=== PATIENT | female | born 1995 | race Caucasian/White ===

== ENCOUNTER 2019-06-17 13:16 | Observation (INO) | payer BC ==
[2019-06-17] MEDS ORDERED: Sodium Chloride 0.9% 1,000 ML IV ONE (13:23)
--- NOTE | 2019-06-17 14:37 | US ---
INDICATION: Right upper quadrant pain TECHNIQUE: Ultrasound abdomen limited. Sonographic images of the right upper quadrant were obtained using interiano-scale and color Doppler images. COMPARISON: None FINDINGS: Liver: Normal in size and echotexture. No masses. No intrahepatic biliary dilatation. Gallbladder: No stones or sludge. Normal wall thickness. No pericholecystic fluid. Common bile duct: Not well visualized. Pancreas: Unremarkable. Right kidney: 12.4 cm. Normal echotexture and cortex. No masses, stones, or hydronephrosis. Vasculature: Proximal abdominal aorta are normal in appearance. IMPRESSION: Unremarkable right upper quadrant ultrasound. The common bile duct is not visualized. Dictated by Tho Butler MD @ 06/17/2019 2:35:23 PM Dictated by: Tho Butler MD @ 06/17/2019 14:35:28 (Electronically Signed)
--- NOTE | 2019-06-17 14:59 | EDM.PDOC ---
<Hector Sandoval J - Last Filed: 06/17/19 14:57> ED HPI GENERAL MEDICAL PROBLEM - General Chief Complaint: Abdominal Pain Stated Complaint: SEVERE STOMACH PAIN Time Seen by Provider: 06/17/19 13:33 - History of Present Illness INITIAL COMMENTS - FREE TEXT/NARRATIVE: HISTORY AND PHYSICAL: History of present illness: Patient's 24-year-old white female presents with concern of abdominal pain this is right-sided mourn her right middle and upper quadrant she was seen at another institution recently and states she was told she had some gallbladder inflammation this was via ultrasound and routine lab work she left prior to completion of her evaluation and treatment and presents now. She had nausea no vomiting no fever chills she denies trauma or urinary symptoms. Review of systems: As per history of present illness and below otherwise all systems reviewed and negative. Past medical history: As per history of present illness and as reviewed below otherwise noncontributory. Surgical history: As per history of present illness and as reviewed below otherwise noncontributory. Social history: No reported history of drug or alcohol abuse. Family history: As per history of present illness and as reviewed below otherwise noncontributory. Physical exam: HEENT: Atraumatic, normocephalic, pupils reactive, negative for conjunctival pallor or scleral icterus, mucous membranes moist, throat clear, neck supple, nontender, trachea midline. Lungs: Clear to auscultation, breath sounds equal bilaterally, chest nontender. Heart: S1S2, regular, negative for clicks, rubs, or JVD. Abdomen: Soft, nondistended, right-sided tenderness this is not well localized is no rebound or guarding. Negative for masses or hepatosplenomegaly. Negative for costovertebral tenderness. Pelvis: Stable nontender. Genitourinary: Deferred. Rectal: Deferred. Extremities: Atraumatic, negative for cords or calf pain. Neurovascular unremarkable. Neuro: Awake, alert, oriented. Cranial nerves II through XII unremarkable. Cerebellum unremarkable. Motor and sensory unremarkable throughout. Exam nonfocal. Diagnostics: CBC CMP UA lipase ultrasound CT abdomen and pelvis Therapeutics: Saline 1 L bottle Impression: #1 right-sided abdominal pain Definitive disposition and diagnosis as appropriate pending reevaluation and review of above. 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 ED EXAM, GENERAL - Physical Exam Exam: See Below (See dictation) Course - Vital Signs Last Recorded V/S: Last Vital Signs Temp 96.5 F 06/17/19 13:57 Pulse 109 H 06/17/19 13:57 Resp 18 06/17/19 13:57 BP 143/93 H 06/17/19 13:57 Pulse Ox 97 06/17/19 13:57 - Orders/Labs/Meds Orders: Active Orders 24 hr Category Date Time Status Admission Status [Patient Status] [ADT] Stat ADT 06/17/19 16:26 Ordered Labs: Laboratory Tests 06/17/19 06/17/19 06/17/19 Range/Units 14:00 14:00 14:20 WBC 17.40 H (4.0-11.0) K/uL RBC 5.09 (4.30-5.90) M/uL Hgb 15.1 (12.0-16.0) g/dL Hct 45.4 (36.0-46.0) % MCV 89.2 (80.0-98.0) fL MCH 29.7 (27.0-32.0) pg MCHC 33.3 (31.0-37.0) g/dL RDW Std Deviation 44.0 (28.0-62.0) fl RDW Coeff of Wei 13 (11.0-15.0) % Plt Count 321 (150-400) K/uL MPV 10.20 (7.40-12.00) fL Neut % (Auto) 79.9 (48.0-80.0) % Lymph % (Auto) 14.8 L (16.0-40.0) % [place] % (Auto) 4.8 (0.0-15.0) % Eos % (Auto) 0.3 (0.0-7.0) % Baso % (Auto) 0.2 (0.0-1.5) % Neut # (Auto) 13.9 H (1.4-5.7) K/uL Lymph # (Auto) 2.6 H (0.6-2.4) K/uL [place] # (Auto) 0.8 (0.0-0.8) K/uL Eos # (Auto) 0.1 (0.0-0.7) K/uL Baso # (Auto) 0.0 (0.0-0.1) K/uL Nucleated RBC % 0.0 /100WBC Nucleated RBCs # 0 K/uL Sodium (136-145) mmol/L Potassium (3.5-5.1) mmol/L Chloride (98-107) mmol/L Carbon Dioxide (21.0-32.0) mmol/L BUN (7.0-18.0) mg/dL Creatinine (0.6-1.0) mg/dL Est Cr Clr Drug Dosing mL/min Estimated GFR (MDRD) ml/min Glucose (74-106) mg/dL Calcium (8.5-10.1) mg/dL Total Bilirubin (0.2-1.0) mg/dL AST (15-37) IU/L ALT (14-63) IU/L Alkaline Phosphatase (46-116) U/L Total Protein (6.4-8.2) g/dL Albumin (3.4-5.0) g/dL Globulin (2.6-4.0) g/dL Albumin/Globulin Ratio (0.9-1.6) Lipase (73-393) U/L Urine Color YELLOW Urine Appearance CLEAR Urine pH 6.0 (5.0-8.0) Ur Specific [place] 1.020 (1.001-1.035) Urine Protein NEGATIVE (NEGATIVE) mg/dL Urine Glucose (UA) NEGATIVE (NEGATIVE) mg/dL Urine Ketones NEGATIVE (NEGATIVE) mg/dL Urine Occult Blood NEGATIVE (NEGATIVE) Urine Nitrite NEGATIVE (NEGATIVE) Urine Bilirubin NEGATIVE (NEGATIVE) Urine Urobilinogen 0.2 (<2.0) EU/dL Ur Leukocyte Esterase NEGATIVE (NEGATIVE) Urine HCG, Qual NEGATIVE (NEGATIVE) 06/17/19 Range/Units 14:20 WBC (4.0-11.0) K/uL RBC (4.30-5.90) M/uL Hgb (12.0-16.0) g/dL Hct (36.0-46.0) % MCV (80.0-98.0) fL MCH (27.0-32.0) pg MCHC (31.0-37.0) g/dL RDW Std Deviation (28.0-62.0) fl RDW Coeff of Wei (11.0-15.0) % Plt Count (150-400) K/uL MPV (7.40-12.00) fL Neut % (Auto) (48.0-80.0) % Lymph % (Auto) (16.0-40.0) % [place] % (Auto) (0.0-15.0) % Eos % (Auto) (0.0-7.0) % Baso % (Auto) (0.0-1.5) % Neut # (Auto) (1.4-5.7) K/uL Lymph # (Auto) (0.6-2.4) K/uL [place] # (Auto) (0.0-0.8) K/uL Eos # (Auto) (0.0-0.7) K/uL Baso # (Auto) (0.0-0.1) K/uL Nucleated RBC % /100WBC Nucleated RBCs # K/uL Sodium 139 (136-145) mmol/L Potassium 3.9 (3.5-5.1) mmol/L Chloride 105 (98-107) mmol/L Carbon Dioxide 24.5 (21.0-32.0) mmol/L BUN 14 (7.0-18.0) mg/dL Creatinine 0.8 (0.6-1.0) mg/dL Est Cr Clr Drug Dosing 102.39 mL/min Estimated GFR (MDRD) > 60.0 ml/min Glucose 156 H (74-106) mg/dL Calcium 9.2 (8.5-10.1) mg/dL Total Bilirubin 0.4 (0.2-1.0) mg/dL AST 12 L (15-37) IU/L ALT 17 (14-63) IU/L Alkaline Phosphatase 69 (46-116) U/L Total Protein 7.4 (6.4-8.2) g/dL Albumin 3.8 (3.4-5.0) g/dL Globulin 3.6 (2.6-4.0) g/dL Albumin/Globulin Ratio 1.1 (0.9-1.6) Lipase 68 L (73-393) U/L Urine Color Urine Appearance Urine pH (5.0-8.0) Ur Specific [place] (1.001-1.035) Urine Protein (NEGATIVE) mg/dL Urine Glucose (UA) (NEGATIVE) mg/dL Urine Ketones (NEGATIVE) mg/dL Urine Occult Blood (NEGATIVE) Urine Nitrite (NEGATIVE) Urine Bilirubin (NEGATIVE) Urine Urobilinogen (<2.0) EU/dL Ur Leukocyte Esterase (NEGATIVE) Urine HCG, Qual (NEGATIVE) Meds: Medications Discontinued Medications Generic Name Dose Route Start Last Admin Trade Name Freq PRN Reason Stop Dose Admin Sodium Chloride 1,000 mls @ 999 mls/hr 06/17/19 13:23 06/17/19 14:23 Normal Saline IV 06/17/19 14:23 999 mls/hr STAT ONE Administration Departure - Departure Disposition: Still A Patient 30 Clinical Impression: Appendicitis Qualifiers: Appendicitis type: acute appendicitis Acute appendicitis type: unspecified acute appendicitis type Qualified Code(s): K35.80 - Unspecified acute appendicitis - Discharge Information Referrals: Corinne Matthews NP [Primary Care Provider] - Forms: ED Department Discharge - My Orders Last 24 Hours: My Active Orders 06/17/19 16:26 Admission Status [Patient Status] [ADT] Stat - Assessment/Plan Last 24 Hours: My Active Orders 06/17/19 16:26 Admission Status [Patient Status] [ADT] Stat <Regla Hensley E - Last Filed: 06/17/19 16:27> Departure - Departure Time of Disposition: 16:27
[2019-06-17 16:02] LABS: CHLORIDE,CL 105 mmol/L (98-107); SODIUM,NA 139 mmol/L (136-145)
--- NOTE | 2019-06-17 16:16 | CT ---
INDICATION: Right sided abdominal pain for 6 days TECHNIQUE: CT Abdomen and pelvis without i.v. contrast. Coronal and sagittal reformats were obtained. COMPARISON: None FINDINGS: Lower chest: Unremarkable. Liver: Unremarkable. Spleen: Unremarkable. Pancreas: Unremarkable. Gallbladder: There is an 8 mm gallstone in the gallbladder neck with no inflammatory changes seen. Kidney: Unremarkable. No kidney or ureteral stones or obstruction seen. Adrenal: Unremarkable. Bowel: The appendix is distended measuring 12 mm with surrounding ascites and moderate inflammatory changes. It is directed cephalad with its tip along the inferior margin of the liver. Vascular: Unremarkable. Lymph: Several ileocolic lymph nodes are measured measuring up to 1 cm. These are likely reactive in nature. Peritoneum: Unremarkable. No pneumoperitoneum is seen. Small amount of pelvic ascites is noted. Pelvis: Unremarkable. Soft tissue: Unremarkable. Bone: Limbus deformity is seen on the superior endplate of L3. IMPRESSION: 1. The appendix is distended measuring 12 mm with surrounding ascites and moderate inflammatory changes. It is directed cephalad with its tip along the inferior margin of the liver. Findings are consistent with acute appendicitis. Dictated by Renato Gracia MD @ 06/17/2019 4:14:46 PM Please note that all CT scans at this facility use dose modulation, iterative reconstruction, and/or weight-based dosing when appropriate to reduce radiation dose to as low as reasonably achievable. Dictated by: Renato Gracia MD @ 06/17/2019 16:14:53 (Electronically Signed)
[2019-06-17] MEDS ORDERED: cefOXitin 2 GM in Premix Bag 1 BAG IV ONE (16:54)
--- NOTE | 2019-06-17 17:08 | PCM.CONS ---
H&P History of Present Illness - General Date of Service: 06/17/19 Admit Problem/Dx: Admission Diagnosis/Problem Admission Diagnosis/Problem Appendicitis Source of Information: Patient History Limitations: Reports: No Limitations - History of Present Illness Initial Comments - Free Text/Narative: Patient is a 24-year-old female who presents to the emergency room here in [place] with complaints of abdominal pain since this past Thursday. This is associated with nausea and vomiting. She has had some mild chills. She was seen in the emergency room in [place] today. Apparently, they did a CT scan or ultrasound, but for whatever reason, she chose to leave there. She then presented to the emergency room here where she has been evaluated. Gallbladder ultrasound did not reveal any acute pathology. She however had an elevated white count at 17,000+ and a CT scan now reveals appendicitis suggesting the appendix is perhaps either retrocecal or at least the tip is in the right upper quadrant. Patient does note pain with ambulation and states that on the ride up if they hit a bump in the road, the pain was more intense. She is a type I diabetic and is on insulin. She has also been on a Keto diet , has lost 32 pounds and has not been taking any fast acting insulin. Symptom Onset Date: 06/12/19 Duration of Symptoms: Reports: Day(s):, Getting Worse Location: Reports: Abdomen Quality: Reports: Ache, Pressure Severity: Moderate Improves with: Reports: Rest Worsens with: Reports: Movement Context: Reports: Sick Contact Associated Symptoms: Reports: Fever/Chills, Loss of Appetite, Nausea/Vomiting. 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 Denies: Night Sweats HEENT: Reports: No Symptoms Pulmonary: Denies: Shortness of Breath, Wheezing, Pleuritic Chest Pain Cardiovascular: Denies: Chest Pain, Palpitations Gastrointestinal: Reports: Abdominal Pain, Anorexia, Decreased Appetite, Flatus , Nausea, Vomiting. Denies: Black Stool, Bloody Stool, Constipation, Diarrhea, Distension, Hematemesis, Hematochezia, Melena Genitourinary: Denies: Dysuria, Frequency, Burning, Pain, Urgency, Abnormal Menses Musculoskeletal: Reports: No Symptoms Skin: Denies: Cyanosis, Jaundice, Mottled, Pallor Psychiatric: Denies: Confusion, Depression, Mood Lability, Anxiety Neurological: Reports: No Symptoms Hematologic/Lymphatic: Reports: No Symptoms Immunologic: Reports: No Symptoms Exam - Exam Exam: See Below - Vital Signs Vital Signs: Last Vital Signs Temp 96.5 F 06/17/19 13:57 Pulse 109 H 06/17/19 13:57 Resp 18 06/17/19 13:57 BP 143/93 H 06/17/19 13:57 Pulse Ox 97 06/17/19 13:57 Weight: 245 lb - Exam Quality Assessment: No: Supplemental Oxygen, Urinary Catheter General: Alert, Oriented, Cooperative, Moderate Distress HEENT: Conjunctiva Clear, EOMI, Pupils Equal, Pupils Reactive. No: Scleral Icterus Neck: Supple, Trachea Midline Lungs: Clear to Auscultation, Normal Respiratory Effort Cardiovascular: Regular Rate, Regular Rhythm. No: Tachycardia GI/Abdominal Exam: Normal Bowel Sounds, Soft, No Distention, Rebound, Tender. No: Guarding, Rigid, Mass (Female) Exam: Deferred Rectal (Female) Exam: Deferred Back Exam: Normal Inspection Extremities: Normal Inspection. No: Pedal Edema, Dain's Sign Peripheral Pulses: 4+: Posterior Tibial (L), Posterior Tibial (R), Dorsalis Pedis (L), Dorsalis Pedis (R) Skin: Warm, Dry, Intact Neurological: Cranial Nerves Intact Neuro Extensive - Mental Status: Alert, Oriented x3, Normal Mood/Affect Psychiatric: Alert, Normal Affect, Normal Mood - Patient Data Lab Results Last 24 hrs: Laboratory Results - last 24 hr 06/17/19 06/17/19 06/17/19 Range/Units 14:00 14:00 14:20 WBC 17.40 H (4.0-11.0) K/uL RBC 5.09 (4.30-5.90) M/uL Hgb 15.1 (12.0-16.0) g/dL Hct 45.4 (36.0-46.0) % MCV 89.2 (80.0-98.0) fL MCH 29.7 (27.0-32.0) pg MCHC 33.3 (31.0-37.0) g/dL RDW Std Deviation 44.0 (28.0-62.0) fl RDW Coeff of Wei 13 (11.0-15.0) % Plt Count 321 (150-400) K/uL MPV 10.20 (7.40-12.00) fL Neut % (Auto) 79.9 (48.0-80.0) % Lymph % (Auto) 14.8 L (16.0-40.0) % [place] % (Auto) 4.8 (0.0-15.0) % Eos % (Auto) 0.3 (0.0-7.0) % Baso % (Auto) 0.2 (0.0-1.5) % Neut # (Auto) 13.9 H (1.4-5.7) K/uL Lymph # (Auto) 2.6 H (0.6-2.4) K/uL [place] # (Auto) 0.8 (0.0-0.8) K/uL Eos # (Auto) 0.1 (0.0-0.7) K/uL Baso # (Auto) 0.0 (0.0-0.1) K/uL Nucleated RBC % 0.0 /100WBC Nucleated RBCs # 0 K/uL Sodium (136-145) mmol/L Potassium (3.5-5.1) mmol/L Chloride (98-107) mmol/L Carbon Dioxide (21.0-32.0) mmol/L BUN (7.0-18.0) mg/dL Creatinine (0.6-1.0) mg/dL Est Cr Clr Drug Dosing mL/min Estimated GFR (MDRD) ml/min Glucose (74-106) mg/dL Calcium (8.5-10.1) mg/dL Total Bilirubin (0.2-1.0) mg/dL AST (15-37) IU/L ALT (14-63) IU/L Alkaline Phosphatase (46-116) U/L Total Protein (6.4-8.2) g/dL Albumin (3.4-5.0) g/dL Globulin (2.6-4.0) g/dL Albumin/Globulin Ratio (0.9-1.6) Lipase (73-393) U/L Urine Color YELLOW Urine Appearance CLEAR Urine pH 6.0 (5.0-8.0) Ur Specific [place] 1.020 (1.001-1.035) Urine Protein NEGATIVE (NEGATIVE) mg/dL Urine Glucose (UA) NEGATIVE (NEGATIVE) mg/dL Urine Ketones NEGATIVE (NEGATIVE) mg/dL Urine Occult Blood NEGATIVE (NEGATIVE) Urine Nitrite NEGATIVE (NEGATIVE) Urine Bilirubin NEGATIVE (NEGATIVE) Urine Urobilinogen 0.2 (<2.0) EU/dL Ur Leukocyte Esterase NEGATIVE (NEGATIVE) Urine HCG, Qual NEGATIVE (NEGATIVE) 06/17/19 Range/Units 14:20 WBC (4.0-11.0) K/uL RBC (4.30-5.90) M/uL Hgb (12.0-16.0) g/dL Hct (36.0-46.0) % MCV (80.0-98.0) fL MCH (27.0-32.0) pg MCHC (31.0-37.0) g/dL RDW Std Deviation (28.0-62.0) fl RDW Coeff of Wei (11.0-15.0) % Plt Count (150-400) K/uL MPV (7.40-12.00) fL Neut % (Auto) (48.0-80.0) % Lymph % (Auto) (16.0-40.0) % [place] % (Auto) (0.0-15.0) % Eos % (Auto) (0.0-7.0) % Baso % (Auto) (0.0-1.5) % Neut # (Auto) (1.4-5.7) K/uL Lymph # (Auto) (0.6-2.4) K/uL [place] # (Auto) (0.0-0.8) K/uL Eos # (Auto) (0.0-0.7) K/uL Baso # (Auto) (0.0-0.1) K/uL Nucleated RBC % /100WBC Nucleated RBCs # K/uL Sodium 139 (136-145) mmol/L Potassium 3.9 (3.5-5.1) mmol/L Chloride 105 (98-107) mmol/L Carbon Dioxide 24.5 (21.0-32.0) mmol/L BUN 14 (7.0-18.0) mg/dL Creatinine 0.8 (0.6-1.0) mg/dL Est Cr Clr Drug Dosing 102.39 mL/min Estimated GFR (MDRD) > 60.0 ml/min Glucose 156 H (74-106) mg/dL Calcium 9.2 (8.5-10.1) mg/dL Total Bilirubin 0.4 (0.2-1.0) mg/dL AST 12 L (15-37) IU/L ALT 17 (14-63) IU/L Alkaline Phosphatase 69 (46-116) U/L Total Protein 7.4 (6.4-8.2) g/dL Albumin 3.8 (3.4-5.0) g/dL Globulin 3.6 (2.6-4.0) g/dL Albumin/Globulin Ratio 1.1 (0.9-1.6) Lipase 68 L (73-393) U/L Urine Color Urine Appearance Urine pH (5.0-8.0) Ur Specific [place] (1.001-1.035) Urine Protein (NEGATIVE) mg/dL Urine Glucose (UA) (NEGATIVE) mg/dL Urine Ketones (NEGATIVE) mg/dL Urine Occult Blood (NEGATIVE) Urine Nitrite (NEGATIVE) Urine Bilirubin (NEGATIVE) Urine Urobilinogen (<2.0) EU/dL Ur Leukocyte Esterase (NEGATIVE) Urine HCG, Qual (NEGATIVE) Result Diagrams: 06/17/19 14:20 06/17/19 14:20 Consult PN Assessment/Plan (1) Obesity (BMI 30-39.9) SNOMED Code(s): 406185572, 726086791 Code(s): E66.9 - OBESITY, UNSPECIFIED Priority: Low Current Visit: Yes (2) Diabetes type 1, controlled SNOMED Code(s): 86540674, 430921408 Code(s): E10.9 - TYPE 1 DIABETES MELLITUS WITHOUT COMPLICATIONS Priority: Medium Current Visit: Yes (3) Appendicitis SNOMED Code(s): 62182999 Code(s): K37 - UNSPECIFIED APPENDICITIS Priority: High Current Visit: Yes Qualifiers: Appendicitis type: acute appendicitis Acute appendicitis type: unspecified acute appendicitis type Qualified Code(s): K35.80 - Unspecified acute appendicitis Problem List Initiated/Reviewed/Updated: Yes My Orders Last 24 Hours: My Active Orders 06/17/19 17:02 Antiembolic Devices [RC] PER UNIT ROUTINE Insert Urinary Catheter [OM.PC] Timed Oxygen Therapy [RC] ASDIRECTED RT Incentive Spirometry [RC] Q1HWA Skin Preparation [RC] .PREOP Urinary Catheter Assessment [RC] ASDIRECTED Urinary Catheter Assessment [RC] ASDIRECTED Urinary Catheter Assessment [RC] ASDIRECTED Vital Signs [RC] PER UNIT ROUTINE Antiembolic Hose [OM.PC] Routine Resuscitation Status Routine 06/17/19 17:15 Lactated Ringers @ 125 MLS/HR(1000ml) Lactated Ringers [Ringers, Lactated] 1, 000 ml IV ASDIRECTED 06/17/19 Dinner Nothing Per Oral Diet [DIET] Plan: Laparoscopic appendectomy, possible open appendectomy. Both operative procedures, along with the risks, including, but not limited to, bleeding, infection, pneumonia, deep venous thrombosis, pulmonary emboli, myocardial infarction, and adjacent organ injury have been reviewed with the patient who voices understanding, offers no questions and agrees to proceed.
[2019-06-17] MEDS ORDERED: Lactated Ringers 1,000 ML IV SCH (17:15)
[2019-06-17] MEDS ORDERED: Neostigmine Methylsulfate 1 MG/ML 5 ML Syringe ONE (17:25)
[2019-06-17] MEDS ORDERED: Lidocaine 2% 5 ML SDV ONE (17:25)
[2019-06-17] MEDS ORDERED: Glycopyrrolate 0.2 MG/ML SDV ONE (17:25)
[2019-06-17] MEDS ORDERED: Ondansetron 4 MG/2 ML SDV ONE (17:25)
[2019-06-17] MEDS ORDERED: Ketorolac 30 MG/ML SDV ONE (17:25)
[2019-06-17] MEDS ORDERED: Rocuronium 100 MG/10 ML Syringe ONE (17:25)
[2019-06-17] MEDS ORDERED: ceFAZolin 1 GM Vial ONE (17:26)
[2019-06-17] MEDS ORDERED: Midazolam 1 MG/ML 2 ML SDV ONE (17:27)
[2019-06-17] MEDS ORDERED: fentaNYL 250 MCG/5 ML SDV ONE (17:27)
[2019-06-17] MEDS ORDERED: Propofol 200 MG/20 ML SDV ONE (17:27)
[2019-06-17] MEDS ORDERED: Bupivacaine 0.5% 10 ML SDV ONE (17:27)
--- NOTE | 2019-06-17 17:42 | PCM.PREANE ---
Preanesthetic Assessment - Anesthesia/Transfusion/Family Hx Anesthesia History: No Prior Anesthesia Family History of Anesthesia Reaction: No Additional History: Insulin Dependant Diabettis - Review of Systems General: No Symptoms Pulmonary: No Symptoms Cardiovascular: No Symptoms Gastrointestinal: Abdominal Pain Neurological: No Symptoms - Physical Assessment NPO Status Date: 06/17/19 NPO Status Time: 12:00 O2 Sat by Pulse Oximetry: 97 Respiratory Rate: 17 Vital Signs: Last Vital Signs Temp 36.5 C 06/17/19 17:07 Pulse 90 06/17/19 17:07 Resp 17 06/17/19 17:07 BP 130/78 06/17/19 17:07 Pulse Ox 97 06/17/19 17:07 Height: 1.68 m Weight: 111.13 kg ASA Class: 2E Mental Status: Alert & Oriented x3 Dentition: Reports: Normal Dentition - Lab Values: Laboratory Last Values WBC 17.40 K/uL (4.0-11.0) H 06/17/19 14:20 RBC 5.09 M/uL (4.30-5.90) 06/17/19 14:20 Hgb 15.1 g/dL (12.0-16.0) 06/17/19 14:20 Hct 45.4 % (36.0-46.0) 06/17/19 14:20 MCV 89.2 fL (80.0-98.0) 06/17/19 14:20 MCH 29.7 pg (27.0-32.0) 06/17/19 14:20 MCHC 33.3 g/dL (31.0-37.0) 06/17/19 14:20 RDW Std Deviation 44.0 fl (28.0-62.0) 06/17/19 14:20 RDW Coeff of Wei 13 % (11.0-15.0) 06/17/19 14:20 Plt Count 321 K/uL (150-400) 06/17/19 14:20 MPV 10.20 fL (7.40-12.00) 06/17/19 14:20 Neut % (Auto) 79.9 % (48.0-80.0) 06/17/19 14:20 Lymph % (Auto) 14.8 % (16.0-40.0) L 06/17/19 14:20 [place] % (Auto) 4.8 % (0.0-15.0) 06/17/19 14:20 Eos % (Auto) 0.3 % (0.0-7.0) 06/17/19 14:20 Baso % (Auto) 0.2 % (0.0-1.5) 06/17/19 14:20 Neut # (Auto) 13.9 K/uL (1.4-5.7) H 06/17/19 14:20 Lymph # (Auto) 2.6 K/uL (0.6-2.4) H 06/17/19 14:20 [place] # (Auto) 0.8 K/uL (0.0-0.8) 06/17/19 14:20 Eos # (Auto) 0.1 K/uL (0.0-0.7) 06/17/19 14:20 Baso # (Auto) 0.0 K/uL (0.0-0.1) 06/17/19 14:20 Nucleated RBC % 0.0 /100WBC 06/17/19 14:20 Nucleated RBCs # 0 K/uL 06/17/19 14:20 Sodium 139 mmol/L (136-145) 06/17/19 14:20 Potassium 3.9 mmol/L (3.5-5.1) 06/17/19 14:20 Chloride 105 mmol/L (98-107) 06/17/19 14:20 Carbon Dioxide 24.5 mmol/L (21.0-32.0) 06/17/19 14:20 BUN 14 mg/dL (7.0-18.0) 06/17/19 14:20 Creatinine 0.8 mg/dL (0.6-1.0) 06/17/19 14:20 Est Cr Clr Drug Dosing 102.39 mL/min 06/17/19 14:20 Estimated GFR (MDRD) > 60.0 ml/min 06/17/19 14:20 Glucose 156 mg/dL (74-106) H 06/17/19 14:20 POC Glucose 64 mg/dL (60-110) 06/17/19 17:37 Calcium 9.2 mg/dL (8.5-10.1) 06/17/19 14:20 Total Bilirubin 0.4 mg/dL (0.2-1.0) 06/17/19 14:20 AST 12 IU/L (15-37) L 06/17/19 14:20 ALT 17 IU/L (14-63) 06/17/19 14:20 Alkaline Phosphatase 69 U/L (46-116) 06/17/19 14:20 Total Protein 7.4 g/dL (6.4-8.2) 06/17/19 14:20 Albumin 3.8 g/dL (3.4-5.0) 06/17/19 14:20 Globulin 3.6 g/dL (2.6-4.0) 06/17/19 14:20 Albumin/Globulin Ratio 1.1 (0.9-1.6) 06/17/19 14:20 Lipase 68 U/L (73-393) L 06/17/19 14:20 Urine Color YELLOW 06/17/19 14:00 Urine Appearance CLEAR 06/17/19 14:00 Urine pH 6.0 (5.0-8.0) 06/17/19 14:00 Ur Specific [place] 1.020 (1.001-1.035) 06/17/19 14:00 Urine Protein NEGATIVE mg/dL (NEGATIVE) 06/17/19 14:00 Urine Glucose (UA) NEGATIVE mg/dL (NEGATIVE) 06/17/19 14:00 Urine Ketones NEGATIVE mg/dL (NEGATIVE) 06/17/19 14:00 Urine Occult Blood NEGATIVE (NEGATIVE) 06/17/19 14:00 Urine Nitrite NEGATIVE (NEGATIVE) 06/17/19 14:00 Urine Bilirubin NEGATIVE (NEGATIVE) 06/17/19 14:00 Urine Urobilinogen 0.2 EU/dL (<2.0) 06/17/19 14:00 Ur Leukocyte Esterase NEGATIVE (NEGATIVE) 06/17/19 14:00 Urine HCG, Qual NEGATIVE (NEGATIVE) 06/17/19 14:00 - Allergies Allergies/Adverse Reactions: Allergies Allergy/AdvReac Type Severity Reaction Status Date / Time No Known Allergies Allergy Verified 06/17/19 13:55 - Acknowledgements Anesthesia Type Planned: General Anesthesia Pt an Appropriate Candidate for the Planned Anesthesia: Yes Alternatives and Risks of Anesthesia Discussed w Pt/Guardian: Yes Pt/Guardian Understands and Agrees with Anesthesia Plan: Yes PreAnesthesia Questionnaire 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: Endocrine/Metabolic History: Reports: Diabetes, Type I - Infectious Disease History Infectious Disease History: Reports: None - SUBSTANCE USE Smoking Status *Q: Current Every Day Smoker Recreational Drug Use History: No - HOME MEDS Home Medications: Home Meds Insulin Aspart [NovoLOG] 0 unit SQ WITHMEALSANDBED 06/17/19 [History] buPROPion [Wellbutrin] 75 mg PO BEDTIME 06/17/19 [History] - CURRENT (IN HOUSE) MEDS Current Meds: Current Medications Lactated Ringer's (Ringers, Lactated) 1,000 mls @ 125 mls/hr IV ASDIRECTED [facility] Last Admin: 06/17/19 17:05 Dose: 125 mls/hr Discontinued Medications Bupivacaine HCl (Sensorcaine-Mpf 0.5%) Confirm Administered Dose 10 ml .ROUTE .STK-MED ONE Stop: 06/17/19 17:28 Cefazolin Sodium (Ancef) Confirm Administered Dose 1 gm .ROUTE .STK-MED ONE Stop: 06/17/19 17:27 Fentanyl (Sublimaze) Confirm Administered Dose 250 mcg .ROUTE .STK-MED ONE Stop: 06/17/19 17:28 Glycopyrrolate (Robinul) Confirm Administered Dose 0.8 mg .ROUTE .STK-MED ONE Stop: 06/17/19 17:26 Sodium Chloride (Normal Saline) 1,000 mls @ 999 mls/hr IV STAT ONE Stop: 06/17/19 14:23 Last Admin: 06/17/19 14:23 Dose: 999 mls/hr Cefoxitin Sodium 2 gm/ Premix 50 mls @ 100 mls/hr IV ONETIME ONE Stop: 06/17/19 17:23 Last Admin: 06/17/19 17:06 Dose: 100 mls/hr Ketorolac Tromethamine (Toradol) Confirm Administered Dose 30 mg .ROUTE .STK- MED ONE Stop: 06/17/19 17:26 Lidocaine (Xylocaine-Mpf 2%) Confirm Administered Dose 5 ml .ROUTE .STK-MED ONE Stop: 06/17/19 17:26 Midazolam HCl (Versed 1 Mg/Ml) Confirm Administered Dose 2 mg .ROUTE .STK-MED ONE Stop: 06/17/19 17:28 Neostigmine Methylsulfate (Neostigmine) Confirm Administered Dose 5 mg .ROUTE .STK-MED ONE Stop: 06/17/19 17:26 Ondansetron HCl (Zofran) Confirm Administered Dose 4 mg .ROUTE .STK-MED ONE Stop: 06/17/19 17:26 Propofol (Diprivan 20 Ml) Confirm Administered Dose 200 mg .ROUTE .STK-MED ONE Stop: 06/17/19 17:28 Rocuronium [place] (Zemuron) Confirm Administered Dose 100 mg .ROUTE .STCinnamon-MED ONE Stop: 06/17/19 17:26 Succinylcholine Chloride (Succinylcholine Chloride) Confirm Administered Dose 200 mg .ROUTE .STK-MED ONE Stop: 06/17/19 17:26
[2019-06-17] MEDS ORDERED: Dextrose 5%-Lactated Ringers 1,000 ML IV SCH (17:45)
[2019-06-17] MEDS ORDERED: fentaNYL 100 MCG/2 ML SDV ONE ×2 (18:40→18:41)
[2019-06-17] MEDS ORDERED: Acetaminophen 325 MG Tab PO PRN (19:34)
[2019-06-17] MEDS ORDERED: Ondansetron 4 MG/2 ML SDV IVPUSH PRN (19:34)
--- NOTE | 2019-06-17 19:35 | PCM.POSTAN ---
POST ANESTHESIA ASSESSMENT - MENTAL STATUS Mental Status: Alert - RESPIRATORY Respiratory Status: Respiratory Rate WNL - CARDIOVASCULAR CV Status: Pulse Rate WNL - GASTROINTESTINAL GI Status: No Symptoms - POST OP HYDRATION Hydration Status: Adequate & Stable
--- NOTE | 2019-06-17 19:41 | PCM.OPNOTE ---
- General Post-Op/Procedure Note Date of Surgery/Procedure: 06/17/19 Operative Procedure(s): Laparoscopic appendectomy Pre Op Diagnosis: Acute abdomen Post-Op Diagnosis: Acute nonruptured retrocecal appendicitis with localized peritonitis Anesthesia Technique: General ET Tube (ASA IIE) Primary Surgeon: Dylan Seymour Fluid Replacement, Intraop: 1,100 Output, Urine Amount: 100 EBL in mLs: 20 Condition: Good Free Text/Narrative:: DICTATION [id number] CPT CODE 88254
--- NOTE | 2019-06-17 19:43 | PCM48HPAN ---
Post Anesthesia Note - EVALUATION WITHIN 48HRS OF ANESTHETIC Vital Signs in Normal Range: Yes Patient Participated in Evaluation: Yes Respiratory Function Stable: Yes Airway Patent: Yes Cardiovascular Function Stable: Yes Hydration Status Stable: Yes Pain Control Satisfactory: Yes Nausea and Vomiting Control Satisfactory: Yes Mental Status Recovered: Yes Resp Rate: 18
[2019-06-17] MEDS: Lactated Ringers 1,000 ML IV SCH (21:42)
[2019-06-17] MEDS: Acetaminophen/HYDROcodone 325-5 MG Tab PO PRN (22:15)
[2019-06-17] MEDS: cefOXitin 1 GM in Premix Bag 1 BAG IV SCH (22:17)
[2019-06-18] MEDS: Acetaminophen/HYDROcodone 325-5 MG Tab PO PRN ×5 (00:19→20:50)
--- NOTE | 2019-06-18 01:20 | OR ---
SURGEON: Dylan Seymour M.D. DATE OF PROCEDURE: 06/17/2019 OPERATION PERFORMED: Laparoscopic appendectomy. ANESTHESIA: General endotracheal. ASA CLASSIFICATION: IIE. PREOPERATIVE DIAGNOSIS: Acute abdomen. POSTOPERATIVE DIAGNOSIS: Acute nonruptured retrocecal appendicitis with localized peritonitis. ESTIMATED BLOOD LOSS: 20 mL. INTRAOPERATIVE FLUID REPLACEMENT: 1100 mL of crystalloid. INTRAOPERATIVE URINE OUTPUT: 100 mL. DESCRIPTION OF PROCEDURE: The patient was taken to the operating room and placed on the operating table in the supine position. Time-out was called for appropriate identification of patient and procedure. Sequential compression boots were placed. Following satisfactory attainment of general endotracheal anesthesia, a Khoury catheter was placed into patient's urinary bladder. The abdomen was prepped with DuraPrep solution. Sterile drapes were applied. The skin just above the umbilicus was infiltrated with 0.5% Marcaine solution. The skin incision was made, deepened into the subcutaneous tissue obtaining hemostasis with the use of electrocautery. The Veress needle was introduced into the peritoneal cavity. Saline drop test was positive. Carbon dioxide pneumoperitoneum was established with the relief set at 13 cm of water. Once we had a satisfactory pneumoperitoneum, the Veress needle was removed and 5 mm camera and port were placed under direct vision. Under camera vision, 12 mm suprapubic and 5 mm left lower quadrant ports were placed. Each incision was preemptively infiltrated with 0.5% Marcaine solution. The patient was now positioned with her head down and rolled to the left. The appendix was plastered in the right upper quadrant. However, with gentle traction, we were able to free up the appendix. The mesoappendix was identified and taken down with the Harmonic scalpel. The appendix was transected using the Endo-SEBASTIÁN stapler with a blue load. The right upper quadrant was irrigated with 1 L of 1% Ancef solution and 1 L of saline. All fluid was aspirated. Once the appendix had been amputated, it was properly placed in an EndoCatch bag and maintained in situ. Once the irrigation procedure was completed, all fluid was aspirated. The right lower quadrant was inspected. No bleeding was noted and the staple line appeared intact. The 12 mm suprapubic port and EndoCatch containing appendix were removed. Under camera vision, the 5 mm left lower quadrant port was removed and finally the supraumbilical camera port were removed. The supraumbilical and suprapubic incisions were closed in 2 layers approximating the subcutaneous tissue with 3-0 Vicryl and the skin with subcuticular 4-0 Monocryl. The right lower quadrant incision was closed with subcuticular 4-0 Monocryl. All incisions were Steri- Stripped and dressed with sterile Tegaderm pads. Khoury catheter was removed prior to emergence from anesthesia. Sponge, needle, and instrument counts were all correct. Following the emergence from anesthesia and extubation, the patient was taken to recovery room in stable condition. NELLIE BUNDY /[id number]
[2019-06-18] MEDS: Morphine 10 MG/ML Syringe IVPUSH PRN ×2 (03:20→14:25)
[2019-06-18] MEDS: cefOXitin 1 GM in Premix Bag 1 BAG IV SCH ×4 (04:19→21:30)
[2019-06-18 06:23] LABS: CHLORIDE,CL 106 mmol/L (98-107); SODIUM,NA 139 mmol/L (136-145)
[2019-06-18] MEDS: Lactated Ringers 1,000 ML IV SCH ×2 (06:49→14:59)
--- NOTE | 2019-06-18 07:19 | PCM.CONS ---
H&P History of Present Illness - General Date of Service: 06/18/19 Admit Problem/Dx: Admission Diagnosis/Problem Admission Diagnosis/Problem Appendicitis Source of Information: Patient, Family History Limitations: Reports: No Limitations - History of Present Illness Initial Comments - Free Text/Narative: Internal medicine consultation requested by surgeon Dr. Seymour. The patient is a 24-year-old lady who had presented to the emergency department secondary to right sided abdominal pain. The patient was evaluated by surgeon yesterday evening and taken to the operating room the diagnosis of acute appendicitis. The patient is a diabetic and has been doing very well with her insulin management. She was diagnosed with type 1 diabetes, late onset, 2016. The patient says that she has been on the ketogenic diet and she has not had to use her short acting insulin. The patient has been taking 52 units of Lantus on a daily basis. The patient says that her last hemoglobin A1c was 7.3. The patient also has been taking medication for bipolar disorder and she has been doing very well with this. Onset of Symptoms: Reports: Gradual Duration of Symptoms: Reports: Day(s): Location: Reports: Abdomen Severity: Moderate Improves with: Reports: None Worsens with: Reports: None Abdominal Pain Score (Numeric/FACES): 7 - Related Data Allergies/Adverse Reactions: Allergies Allergy/AdvReac Type Severity Reaction Status Date / Time No Known Allergies Allergy Verified 06/17/19 20:30 Home Medications: Home Meds Insulin Aspart [NovoLOG] 0 unit SQ WITHMEALSANDBED 06/17/19 [History] buPROPion [Wellbutrin] 75 mg PO BEDTIME 06/17/19 [History] Insulin Degludec [Tresiba] 56 units SUBCUT BEDTIME 06/18/19 [History] Past Medical History HEENT History: Reports: Impaired Vision Other HEENT History: wears glasses Cardiovascular History: Reports: Hypertension Respiratory History: Reports: None Gastrointestinal History: Reports: None Genitourinary History: Reports: None 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: Musculoskeletal History: Reports: None Neurological History: Reports: None Psychiatric History: Reports: ADHD, Bipolar Endocrine/Metabolic History: Reports: Diabetes, Type I, Obesity/BMI 30+ Hematologic History: Reports: None Immunologic History: Reports: None Oncologic (Cancer) History: Reports: None Dermatologic History: Reports: None - Infectious Disease History Infectious Disease History: Reports: None Social & Family History - Family History Family Medical History: Noncontributory - Tobacco Use Smoking Status *Q: Current Every Day Smoker Years of Tobacco use: 5 Packs/Tins Daily: 0.7 Used Tobacco, but Quit: No Second Hand Smoke Exposure: No - Caffeine Use Caffeine Use: Reports: Soda - Alcohol Use Days Per Week of Alcohol Use: 0 - Recreational Drug Use Recreational Drug Use: No - Living Situation & Occupation Living situation: Reports: , with Spouse Occupation: Other H&P Review of Systems - Review of Systems: Review Of Systems: See Below General: Reports: No Symptoms HEENT: Reports: No Symptoms Pulmonary: Reports: No Symptoms Cardiovascular: Reports: No Symptoms Gastrointestinal: Reports: Abdominal Pain Genitourinary: Reports: No Symptoms Musculoskeletal: Reports: No Symptoms Skin: Reports: No Symptoms Psychiatric: Reports: No Symptoms Neurological: Reports: No Symptoms Hematologic/Lymphatic: Reports: No Symptoms Immunologic: Reports: No Symptoms Exam - Exam Exam: See Below - Vital Signs Vital Signs: Last Vital Signs Temp 36.6 C 06/18/19 03:23 Pulse 86 06/18/19 03:23 Resp 16 06/18/19 04:13 BP 97/49 L 06/18/19 03:23 Pulse Ox 94 L 06/18/19 03:23 Weight: 111.13 kg - Exam Quality Assessment: No: Supplemental Oxygen General: Alert, Oriented, Cooperative HEENT: Conjunctiva Clear, EACs Clear, EOMI, Mucosa Moist & [place], Pupils Equal, PERRLA Neck: Supple, Trachea Midline Lungs: Clear to Auscultation, Normal Respiratory Effort Cardiovascular: Regular Rate, Regular Rhythm GI/Abdominal Exam: Soft, No Distention, Tender (Appropriate for procedure), Other (Obese). No: Normal Bowel Sounds (Hypoactive, postsurgical) Back Exam: Normal Inspection, Full Range of Motion Extremities: Normal Inspection, No Pedal Edema Skin: Warm, Dry, Intact Neurological: Cranial Nerves Intact Neuro Extensive - Motor, Sensory, Reflexes: CN II-XII Intact Psychiatric: Alert, Normal Affect, Normal Mood - Patient Data Lab Results Last 24 hrs: Laboratory Results - last 24 hr 06/17/19 06/17/19 06/17/19 Range/Units 14:00 14:00 14:20 WBC 17.40 H (4.0-11.0) K/uL RBC 5.09 (4.30-5.90) M/uL Hgb 15.1 (12.0-16.0) g/dL Hct 45.4 (36.0-46.0) % MCV 89.2 (80.0-98.0) fL MCH 29.7 (27.0-32.0) pg MCHC 33.3 (31.0-37.0) g/dL RDW Std Deviation 44.0 (28.0-62.0) fl RDW Coeff of Wei 13 (11.0-15.0) % Plt Count 321 (150-400) K/uL MPV 10.20 (7.40-12.00) fL Neut % (Auto) 79.9 (48.0-80.0) % Lymph % (Auto) 14.8 L (16.0-40.0) % [place] % (Auto) 4.8 (0.0-15.0) % Eos % (Auto) 0.3 (0.0-7.0) % Baso % (Auto) 0.2 (0.0-1.5) % Neut # (Auto) 13.9 H (1.4-5.7) K/uL Lymph # (Auto) 2.6 H (0.6-2.4) K/uL [place] # (Auto) 0.8 (0.0-0.8) K/uL Eos # (Auto) 0.1 (0.0-0.7) K/uL Baso # (Auto) 0.0 (0.0-0.1) K/uL Nucleated RBC % 0.0 /100WBC Nucleated RBCs # 0 K/uL Sodium (136-145) mmol/L Potassium (3.5-5.1) mmol/L Chloride (98-107) mmol/L Carbon Dioxide (21.0-32.0) mmol/L BUN (7.0-18.0) mg/dL Creatinine (0.6-1.0) mg/dL Est Cr Clr Drug Dosing mL/min Estimated GFR (MDRD) ml/min Glucose (74-106) mg/dL POC Glucose (60-110) mg/dL Calcium (8.5-10.1) mg/dL Total Bilirubin (0.2-1.0) mg/dL AST (15-37) IU/L ALT (14-63) IU/L Alkaline Phosphatase (46-116) U/L Total Protein (6.4-8.2) g/dL Albumin (3.4-5.0) g/dL Globulin (2.6-4.0) g/dL Albumin/Globulin Ratio (0.9-1.6) Lipase (73-393) U/L Urine Color YELLOW Urine Appearance CLEAR Urine pH 6.0 (5.0-8.0) Ur Specific [place] 1.020 (1.001-1.035) Urine Protein NEGATIVE (NEGATIVE) mg/dL Urine Glucose (UA) NEGATIVE (NEGATIVE) mg/dL Urine Ketones NEGATIVE (NEGATIVE) mg/dL Urine Occult Blood NEGATIVE (NEGATIVE) Urine Nitrite NEGATIVE (NEGATIVE) Urine Bilirubin NEGATIVE (NEGATIVE) Urine Urobilinogen 0.2 (<2.0) EU/dL Ur Leukocyte Esterase NEGATIVE (NEGATIVE) Urine HCG, Qual NEGATIVE (NEGATIVE) 06/17/19 06/17/19 06/17/19 Range/Units 14:20 17:37 19:37 WBC (4.0-11.0) K/uL RBC (4.30-5.90) M/uL Hgb (12.0-16.0) g/dL Hct (36.0-46.0) % MCV (80.0-98.0) fL MCH (27.0-32.0) pg MCHC (31.0-37.0) g/dL RDW Std Deviation (28.0-62.0) fl RDW Coeff of Wei (11.0-15.0) % Plt Count (150-400) K/uL MPV (7.40-12.00) fL Neut % (Auto) (48.0-80.0) % Lymph % (Auto) (16.0-40.0) % [place] % (Auto) (0.0-15.0) % Eos % (Auto) (0.0-7.0) % Baso % (Auto) (0.0-1.5) % Neut # (Auto) (1.4-5.7) K/uL Lymph # (Auto) (0.6-2.4) K/uL [place] # (Auto) (0.0-0.8) K/uL Eos # (Auto) (0.0-0.7) K/uL Baso # (Auto) (0.0-0.1) K/uL Nucleated RBC % /100WBC Nucleated RBCs # K/uL Sodium 139 (136-145) mmol/L Potassium 3.9 (3.5-5.1) mmol/L Chloride 105 (98-107) mmol/L Carbon Dioxide 24.5 (21.0-32.0) mmol/L BUN 14 (7.0-18.0) mg/dL Creatinine 0.8 (0.6-1.0) mg/dL Est Cr Clr Drug Dosing 102.39 mL/min Estimated GFR (MDRD) > 60.0 ml/min Glucose 156 H (74-106) mg/dL POC Glucose 64 230 H (60-110) mg/dL Calcium 9.2 (8.5-10.1) mg/dL Total Bilirubin 0.4 (0.2-1.0) mg/dL AST 12 L (15-37) IU/L ALT 17 (14-63) IU/L Alkaline Phosphatase 69 (46-116) U/L Total Protein 7.4 (6.4-8.2) g/dL Albumin 3.8 (3.4-5.0) g/dL Globulin 3.6 (2.6-4.0) g/dL Albumin/Globulin Ratio 1.1 (0.9-1.6) Lipase 68 L (73-393) U/L Urine Color Urine Appearance Urine pH (5.0-8.0) Ur Specific [place] (1.001-1.035) Urine Protein (NEGATIVE) mg/dL Urine Glucose (UA) (NEGATIVE) mg/dL Urine Ketones (NEGATIVE) mg/dL Urine Occult Blood (NEGATIVE) Urine Nitrite (NEGATIVE) Urine Bilirubin (NEGATIVE) Urine Urobilinogen (<2.0) EU/dL Ur Leukocyte Esterase (NEGATIVE) Urine HCG, Qual (NEGATIVE) 06/17/19 06/17/19 06/18/19 Range/Units 20:56 23:12 06:03 WBC 15.04 H (4.0-11.0) K/uL RBC 4.42 (4.30-5.90) M/uL Hgb 12.9 (12.0-16.0) g/dL Hct 39.9 (36.0-46.0) % MCV 90.3 (80.0-98.0) fL MCH 29.2 (27.0-32.0) pg MCHC 32.3 (31.0-37.0) g/dL RDW Std Deviation 44.2 (28.0-62.0) fl RDW Coeff of Wei 13 (11.0-15.0) % Plt Count 265 (150-400) K/uL MPV 10.00 (7.40-12.00) fL Neut % (Auto) 82.9 H (48.0-80.0) % Lymph % (Auto) 12.5 L (16.0-40.0) % [place] % (Auto) 4.2 (0.0-15.0) % Eos % (Auto) 0.3 (0.0-7.0) % Baso % (Auto) 0.1 (0.0-1.5) % Neut # (Auto) 12.5 H (1.4-5.7) K/uL Lymph # (Auto) 1.9 (0.6-2.4) K/uL [place] # (Auto) 0.6 (0.0-0.8) K/uL Eos # (Auto) 0.0 (0.0-0.7) K/uL Baso # (Auto) 0.0 (0.0-0.1) K/uL Nucleated RBC % 0.0 /100WBC Nucleated RBCs # 0 K/uL Sodium (136-145) mmol/L Potassium (3.5-5.1) mmol/L Chloride (98-107) mmol/L Carbon Dioxide (21.0-32.0) mmol/L BUN (7.0-18.0) mg/dL Creatinine (0.6-1.0) mg/dL Est Cr Clr Drug Dosing mL/min Estimated GFR (MDRD) ml/min Glucose (74-106) mg/dL POC Glucose 156 H 97 (60-110) mg/dL Calcium (8.5-10.1) mg/dL Total Bilirubin (0.2-1.0) mg/dL AST (15-37) IU/L ALT (14-63) IU/L Alkaline Phosphatase (46-116) U/L Total Protein (6.4-8.2) g/dL Albumin (3.4-5.0) g/dL Globulin (2.6-4.0) g/dL Albumin/Globulin Ratio (0.9-1.6) Lipase (73-393) U/L Urine Color Urine Appearance Urine pH (5.0-8.0) Ur Specific [place] (1.001-1.035) Urine Protein (NEGATIVE) mg/dL Urine Glucose (UA) (NEGATIVE) mg/dL Urine Ketones (NEGATIVE) mg/dL Urine Occult Blood (NEGATIVE) Urine Nitrite (NEGATIVE) Urine Bilirubin (NEGATIVE) Urine Urobilinogen (<2.0) EU/dL Ur Leukocyte Esterase (NEGATIVE) Urine HCG, Qual (NEGATIVE) 06/18/19 06/18/19 Range/Units 06:03 06:34 WBC (4.0-11.0) K/uL RBC (4.30-5.90) M/uL Hgb (12.0-16.0) g/dL Hct (36.0-46.0) % MCV (80.0-98.0) fL MCH (27.0-32.0) pg MCHC (31.0-37.0) g/dL RDW Std Deviation (28.0-62.0) fl RDW Coeff of Wei (11.0-15.0) % Plt Count (150-400) K/uL MPV (7.40-12.00) fL Neut % (Auto) (48.0-80.0) % Lymph % (Auto) (16.0-40.0) % [place] % (Auto) (0.0-15.0) % Eos % (Auto) (0.0-7.0) % Baso % (Auto) (0.0-1.5) % Neut # (Auto) (1.4-5.7) K/uL Lymph # (Auto) (0.6-2.4) K/uL [place] # (Auto) (0.0-0.8) K/uL Eos # (Auto) (0.0-0.7) K/uL Baso # (Auto) (0.0-0.1) K/uL Nucleated RBC % /100WBC Nucleated RBCs # K/uL Sodium 139 (136-145) mmol/L Potassium 3.8 (3.5-5.1) mmol/L Chloride 106 (98-107) mmol/L Carbon Dioxide 27.3 (21.0-32.0) mmol/L BUN 9 (7.0-18.0) mg/dL Creatinine 0.7 (0.6-1.0) mg/dL Est Cr Clr Drug Dosing 117.01 mL/min Estimated GFR (MDRD) > 60.0 ml/min Glucose 76 (74-106) mg/dL POC Glucose 72 (60-110) mg/dL Calcium 8.2 L (8.5-10.1) mg/dL Total Bilirubin (0.2-1.0) mg/dL AST (15-37) IU/L ALT (14-63) IU/L Alkaline Phosphatase (46-116) U/L Total Protein (6.4-8.2) g/dL Albumin (3.4-5.0) g/dL Globulin (2.6-4.0) g/dL Albumin/Globulin Ratio (0.9-1.6) Lipase (73-393) U/L Urine Color Urine Appearance Urine pH (5.0-8.0) Ur Specific [place] (1.001-1.035) Urine Protein (NEGATIVE) mg/dL Urine Glucose (UA) (NEGATIVE) mg/dL Urine Ketones (NEGATIVE) mg/dL Urine Occult Blood (NEGATIVE) Urine Nitrite (NEGATIVE) Urine Bilirubin (NEGATIVE) Urine Urobilinogen (<2.0) EU/dL Ur Leukocyte Esterase (NEGATIVE) Urine HCG, Qual (NEGATIVE) Result Diagrams: 06/18/19 06:03 06/18/19 06:03 Consult PN Assessment/Plan POD#: 1 (1) Appendicitis SNOMED Code(s): 69336181 Code(s): K37 - UNSPECIFIED APPENDICITIS Priority: High Current Visit: Yes Qualifiers: Appendicitis type: acute appendicitis Acute appendicitis type: unspecified acute appendicitis type Qualified Code(s): K35.80 - Unspecified acute appendicitis (2) Obesity (BMI 30-39.9) SNOMED Code(s): 589234446, 081011761 Code(s): E66.9 - OBESITY, UNSPECIFIED Priority: Medium Current Visit: No (3) Diabetes type 1, controlled SNOMED Code(s): 35207515, 985617962 Code(s): E10.9 - TYPE 1 DIABETES MELLITUS WITHOUT COMPLICATIONS Priority: High Current Visit: Yes Qualifiers: Diabetes mellitus complication status: without complication Qualified Code( s): E10.9 - Type 1 diabetes mellitus without complications (4) Tobacco use SNOMED Code(s): 753385665 Code(s): Z72.0 - TOBACCO USE Priority: Medium Current Visit: Yes (5) Bipolar disorder SNOMED Code(s): 70573111 Code(s): F31.9 - BIPOLAR DISORDER, UNSPECIFIED Priority: Medium Current Visit: Yes Qualifiers: Active/Remission status: in partial remission Most recent bipolar episode type: most recent episode unspecified type Qualified Code(s): F31.70 - Bipolar disorder, currently in remission, most recent episode unspecified Problem List Initiated/Reviewed/Updated: Yes My Orders Last 24 Hours: The patient is an otherwise healthy 24-year-old lady who has been doing very well with the management of her type 1 diabetes. For now since patient is nothing by mouth we'll keep her Lantus on hold. Likely, she will not need to have sliding scale insulin as her previously blood sugars of also been well controlled. The patient's blood sugars will continue to be monitored 3 times a day and at bedtime. She also have sliding scale insulin as necessary. The patient also has been encouraged to ambulate. She has been recommended continue follow-up with her primary care physician. I like to thank Dr. Seymour for participation in care of this patient. Requesting Provider: Dr. Theo Seymour Date Consult Requested: 06/17/19 Reason for Consult: Medical management diabetes Patient History Reviewed: Yes Admission H&P Reviewed: Yes Notified Requestor: Yes
--- NOTE | 2019-06-18 10:54 | PCM.SURGPN ---
- General Info Date of Service: 06/18/19 Date of Surgery/Procedure: 06/24/19 POD#: 1 Post-Op Diagnosis: Acute nonruptured appendicitis. Functional Status: Reports: Pain Controlled, Tolerating Diet, Ambulating, Urinating (frequent, small amounts.) - Review of Systems General: Denies: Fever, Weakness, Fatigue, Malaise HEENT: Reports: No Symptoms Pulmonary: Denies: Shortness of Breath, Pleuritic Chest Pain, Cough Cardiovascular: Denies: Chest Pain, Palpitations Gastrointestinal: Reports: Abdominal Pain (Incisional), Decreased Appetite, Flatus. Denies: Diarrhea, Difficulty Swallowing, Nausea, Vomiting Genitourinary: Reports: Frequency. Denies: Burning, Pain, Urgency Musculoskeletal: Denies: Neck Pain, Shoulder Pain Skin: Denies: Cyanosis, Jaundice Neurological: Reports: No Symptoms Psychiatric: Reports: No Symptoms - Patient Data Vitals - Most Recent: Last Vital Signs Temp 98.1 F 06/18/19 08:00 Pulse 82 06/18/19 08:00 Resp 16 06/18/19 08:00 BP 97/57 L 06/18/19 08:00 Pulse Ox 96 06/18/19 08:00 Weight - Most Recent: 245 lb I&O - Last 24 Hours: Intake & Output 06/17/19 06/18/19 06/18/19 19:59 03:59 11:59 Intake Total 2550 50 1650 Output Total 200 300 Balance 2350 50 1350 Lab Results Last 24 Hrs: Laboratory Results - last 24 hr 06/17/19 06/17/19 06/17/19 Range/Units 14:00 14:00 14:20 WBC 17.40 H (4.0-11.0) K/uL RBC 5.09 (4.30-5.90) M/uL Hgb 15.1 (12.0-16.0) g/dL Hct 45.4 (36.0-46.0) % MCV 89.2 (80.0-98.0) fL MCH 29.7 (27.0-32.0) pg MCHC 33.3 (31.0-37.0) g/dL RDW Std Deviation 44.0 (28.0-62.0) fl RDW Coeff of Wei 13 (11.0-15.0) % Plt Count 321 (150-400) K/uL MPV 10.20 (7.40-12.00) fL Neut % (Auto) 79.9 (48.0-80.0) % Lymph % (Auto) 14.8 L (16.0-40.0) % [place] % (Auto) 4.8 (0.0-15.0) % Eos % (Auto) 0.3 (0.0-7.0) % Baso % (Auto) 0.2 (0.0-1.5) % Neut # (Auto) 13.9 H (1.4-5.7) K/uL Lymph # (Auto) 2.6 H (0.6-2.4) K/uL [place] # (Auto) 0.8 (0.0-0.8) K/uL Eos # (Auto) 0.1 (0.0-0.7) K/uL Baso # (Auto) 0.0 (0.0-0.1) K/uL Nucleated RBC % 0.0 /100WBC Nucleated RBCs # 0 K/uL Sodium (136-145) mmol/L Potassium (3.5-5.1) mmol/L Chloride (98-107) mmol/L Carbon Dioxide (21.0-32.0) mmol/L BUN (7.0-18.0) mg/dL Creatinine (0.6-1.0) mg/dL Est Cr Clr Drug Dosing mL/min Estimated GFR (MDRD) ml/min Glucose (74-106) mg/dL POC Glucose (60-110) mg/dL Calcium (8.5-10.1) mg/dL Total Bilirubin (0.2-1.0) mg/dL AST (15-37) IU/L ALT (14-63) IU/L Alkaline Phosphatase (46-116) U/L Total Protein (6.4-8.2) g/dL Albumin (3.4-5.0) g/dL Globulin (2.6-4.0) g/dL Albumin/Globulin Ratio (0.9-1.6) Lipase (73-393) U/L Urine Color YELLOW Urine Appearance CLEAR Urine pH 6.0 (5.0-8.0) Ur Specific [place] 1.020 (1.001-1.035) Urine Protein NEGATIVE (NEGATIVE) mg/dL Urine Glucose (UA) NEGATIVE (NEGATIVE) mg/dL Urine Ketones NEGATIVE (NEGATIVE) mg/dL Urine Occult Blood NEGATIVE (NEGATIVE) Urine Nitrite NEGATIVE (NEGATIVE) Urine Bilirubin NEGATIVE (NEGATIVE) Urine Urobilinogen 0.2 (<2.0) EU/dL Ur Leukocyte Esterase NEGATIVE (NEGATIVE) Urine HCG, Qual NEGATIVE (NEGATIVE) 06/17/19 06/17/19 06/17/19 Range/Units 14:20 17:37 19:37 WBC (4.0-11.0) K/uL RBC (4.30-5.90) M/uL Hgb (12.0-16.0) g/dL Hct (36.0-46.0) % MCV (80.0-98.0) fL MCH (27.0-32.0) pg MCHC (31.0-37.0) g/dL RDW Std Deviation (28.0-62.0) fl RDW Coeff of Wei (11.0-15.0) % Plt Count (150-400) K/uL MPV (7.40-12.00) fL Neut % (Auto) (48.0-80.0) % Lymph % (Auto) (16.0-40.0) % [place] % (Auto) (0.0-15.0) % Eos % (Auto) (0.0-7.0) % Baso % (Auto) (0.0-1.5) % Neut # (Auto) (1.4-5.7) K/uL Lymph # (Auto) (0.6-2.4) K/uL [place] # (Auto) (0.0-0.8) K/uL Eos # (Auto) (0.0-0.7) K/uL Baso # (Auto) (0.0-0.1) K/uL Nucleated RBC % /100WBC Nucleated RBCs # K/uL Sodium 139 (136-145) mmol/L Potassium 3.9 (3.5-5.1) mmol/L Chloride 105 (98-107) mmol/L Carbon Dioxide 24.5 (21.0-32.0) mmol/L BUN 14 (7.0-18.0) mg/dL Creatinine 0.8 (0.6-1.0) mg/dL Est Cr Clr Drug Dosing 102.39 mL/min Estimated GFR (MDRD) > 60.0 ml/min Glucose 156 H (74-106) mg/dL POC Glucose 64 230 H (60-110) mg/dL Calcium 9.2 (8.5-10.1) mg/dL Total Bilirubin 0.4 (0.2-1.0) mg/dL AST 12 L (15-37) IU/L ALT 17 (14-63) IU/L Alkaline Phosphatase 69 (46-116) U/L Total Protein 7.4 (6.4-8.2) g/dL Albumin 3.8 (3.4-5.0) g/dL Globulin 3.6 (2.6-4.0) g/dL Albumin/Globulin Ratio 1.1 (0.9-1.6) Lipase 68 L (73-393) U/L Urine Color Urine Appearance Urine pH (5.0-8.0) Ur Specific [place] (1.001-1.035) Urine Protein (NEGATIVE) mg/dL Urine Glucose (UA) (NEGATIVE) mg/dL Urine Ketones (NEGATIVE) mg/dL Urine Occult Blood (NEGATIVE) Urine Nitrite (NEGATIVE) Urine Bilirubin (NEGATIVE) Urine Urobilinogen (<2.0) EU/dL Ur Leukocyte Esterase (NEGATIVE) Urine HCG, Qual (NEGATIVE) 06/17/19 06/17/19 06/18/19 Range/Units 20:56 23:12 06:03 WBC 15.04 H (4.0-11.0) K/uL RBC 4.42 (4.30-5.90) M/uL Hgb 12.9 (12.0-16.0) g/dL Hct 39.9 (36.0-46.0) % MCV 90.3 (80.0-98.0) fL MCH 29.2 (27.0-32.0) pg MCHC 32.3 (31.0-37.0) g/dL RDW Std Deviation 44.2 (28.0-62.0) fl RDW Coeff of Wei 13 (11.0-15.0) % Plt Count 265 (150-400) K/uL MPV 10.00 (7.40-12.00) fL Neut % (Auto) 82.9 H (48.0-80.0) % Lymph % (Auto) 12.5 L (16.0-40.0) % [place] % (Auto) 4.2 (0.0-15.0) % Eos % (Auto) 0.3 (0.0-7.0) % Baso % (Auto) 0.1 (0.0-1.5) % Neut # (Auto) 12.5 H (1.4-5.7) K/uL Lymph # (Auto) 1.9 (0.6-2.4) K/uL [place] # (Auto) 0.6 (0.0-0.8) K/uL Eos # (Auto) 0.0 (0.0-0.7) K/uL Baso # (Auto) 0.0 (0.0-0.1) K/uL Nucleated RBC % 0.0 /100WBC Nucleated RBCs # 0 K/uL Sodium (136-145) mmol/L Potassium (3.5-5.1) mmol/L Chloride (98-107) mmol/L Carbon Dioxide (21.0-32.0) mmol/L BUN (7.0-18.0) mg/dL Creatinine (0.6-1.0) mg/dL Est Cr Clr Drug Dosing mL/min Estimated GFR (MDRD) ml/min Glucose (74-106) mg/dL POC Glucose 156 H 97 (60-110) mg/dL Calcium (8.5-10.1) mg/dL Total Bilirubin (0.2-1.0) mg/dL AST (15-37) IU/L ALT (14-63) IU/L Alkaline Phosphatase (46-116) U/L Total Protein (6.4-8.2) g/dL Albumin (3.4-5.0) g/dL Globulin (2.6-4.0) g/dL Albumin/Globulin Ratio (0.9-1.6) Lipase (73-393) U/L Urine Color Urine Appearance Urine pH (5.0-8.0) Ur Specific [place] (1.001-1.035) Urine Protein (NEGATIVE) mg/dL Urine Glucose (UA) (NEGATIVE) mg/dL Urine Ketones (NEGATIVE) mg/dL Urine Occult Blood (NEGATIVE) Urine Nitrite (NEGATIVE) Urine Bilirubin (NEGATIVE) Urine Urobilinogen (<2.0) EU/dL Ur Leukocyte Esterase (NEGATIVE) Urine HCG, Qual (NEGATIVE) 06/18/19 06/18/19 Range/Units 06:03 06:34 WBC (4.0-11.0) K/uL RBC (4.30-5.90) M/uL Hgb (12.0-16.0) g/dL Hct (36.0-46.0) % MCV (80.0-98.0) fL MCH (27.0-32.0) pg MCHC (31.0-37.0) g/dL RDW Std Deviation (28.0-62.0) fl RDW Coeff of Wei (11.0-15.0) % Plt Count (150-400) K/uL MPV (7.40-12.00) fL Neut % (Auto) (48.0-80.0) % Lymph % (Auto) (16.0-40.0) % [place] % (Auto) (0.0-15.0) % Eos % (Auto) (0.0-7.0) % Baso % (Auto) (0.0-1.5) % Neut # (Auto) (1.4-5.7) K/uL Lymph # (Auto) (0.6-2.4) K/uL [place] # (Auto) (0.0-0.8) K/uL Eos # (Auto) (0.0-0.7) K/uL Baso # (Auto) (0.0-0.1) K/uL Nucleated RBC % /100WBC Nucleated RBCs # K/uL Sodium 139 (136-145) mmol/L Potassium 3.8 (3.5-5.1) mmol/L Chloride 106 (98-107) mmol/L Carbon Dioxide 27.3 (21.0-32.0) mmol/L BUN 9 (7.0-18.0) mg/dL Creatinine 0.7 (0.6-1.0) mg/dL Est Cr Clr Drug Dosing 117.01 mL/min Estimated GFR (MDRD) > 60.0 ml/min Glucose 76 (74-106) mg/dL POC Glucose 72 (60-110) mg/dL Calcium 8.2 L (8.5-10.1) mg/dL Total Bilirubin (0.2-1.0) mg/dL AST (15-37) IU/L ALT (14-63) IU/L Alkaline Phosphatase (46-116) U/L Total Protein (6.4-8.2) g/dL Albumin (3.4-5.0) g/dL Globulin (2.6-4.0) g/dL Albumin/Globulin Ratio (0.9-1.6) Lipase (73-393) U/L Urine Color Urine Appearance Urine pH (5.0-8.0) Ur Specific [place] (1.001-1.035) Urine Protein (NEGATIVE) mg/dL Urine Glucose (UA) (NEGATIVE) mg/dL Urine Ketones (NEGATIVE) mg/dL Urine Occult Blood (NEGATIVE) Urine Nitrite (NEGATIVE) Urine Bilirubin (NEGATIVE) Urine Urobilinogen (<2.0) EU/dL Ur Leukocyte Esterase (NEGATIVE) Urine HCG, Qual (NEGATIVE) Med Orders - Current: Current Medications Acetaminophen (Tylenol) 325 mg PO Q4H PRN PRN Reason: Fever Greater Than 101 Hydrocodone Bitart/Acetaminophen ([place] 325-5 Mg) 1 - 2 tab PO Q4H PRN PRN Reason: Pain (moderate 4-6) Last Admin: 06/18/19 10:39 Dose: 2 tab Lactated Ringer's (Ringers, Lactated) 1,000 mls @ 125 mls/hr IV ASDIRECTED [facility] Last Admin: 06/18/19 06:49 Dose: 125 mls/hr Cefoxitin Sodium 1 gm/ Premix 50 mls @ 100 mls/hr IV Q6H [facility] Stop: 06/18/19 11:29 Last Admin: 06/18/19 10:09 Dose: 100 mls/hr Cefoxitin Sodium 1 gm/ Premix 50 mls @ 100 mls/hr IV Q6H [facility] Stop: 06/19/19 05:14 Morphine Sulfate (Morphine) 1 - 5 mg IVPUSH ASDIRECTED PRN PRN Reason: Pain (severe 7-10) Last Admin: 06/18/19 03:20 Dose: 2 mg Ondansetron HCl (Zofran) 4 mg IVPUSH Q6H PRN PRN Reason: Nausea/Vomiting Discontinued Medications Bupivacaine HCl (Sensorcaine-Mpf 0.5%) Confirm Administered Dose 10 ml .ROUTE .STK-MED ONE Stop: 06/17/19 17:28 Cefazolin Sodium (Ancef) Confirm Administered Dose 1 gm .ROUTE .STK-MED ONE Stop: 06/17/19 17:27 Fentanyl (Sublimaze) Confirm Administered Dose 250 mcg .ROUTE .STK-MED ONE Stop: 06/17/19 17:28 Fentanyl (Sublimaze) Confirm Administered Dose 100 mcg .ROUTE .STK-MED ONE Stop: 06/17/19 18:41 Fentanyl (Sublimaze) Confirm Administered Dose 100 mcg .ROUTE .STK-MED ONE Stop: 06/17/19 18:42 Glycopyrrolate (Robinul) Confirm Administered Dose 0.8 mg .ROUTE .STK-MED ONE Stop: 06/17/19 17:26 Sodium Chloride (Normal Saline) 1,000 mls @ 999 mls/hr IV STAT ONE Stop: 06/17/19 14:23 Last Admin: 06/17/19 14:23 Dose: 999 mls/hr Cefoxitin Sodium 2 gm/ Premix 50 mls @ 100 mls/hr IV ONETIME ONE Stop: 06/17/19 17:23 Last Admin: 06/17/19 17:06 Dose: 100 mls/hr Lactated Ringer's (Ringers, Lactated) 1,000 mls @ 125 mls/hr IV ASDIRECTED [facility] Last Admin: 06/17/19 17:05 Dose: 125 mls/hr Dextrose/Lactated Ringer's (Dextrose 5%-Lactated Ringers) 1,000 mls @ 125 mls/ hr IV ASDIRECTED [facility] Last Admin: 06/17/19 17:48 Dose: 125 mls/hr Ketorolac Tromethamine (Toradol) Confirm Administered Dose 30 mg .ROUTE .STK- MED ONE Stop: 06/17/19 17:26 Lidocaine (Xylocaine-Mpf 2%) Confirm Administered Dose 5 ml .ROUTE .STK-MED ONE Stop: 06/17/19 17:26 Midazolam HCl (Versed 1 Mg/Ml) Confirm Administered Dose 2 mg .ROUTE .STK-MED ONE Stop: 06/17/19 17:28 Neostigmine Methylsulfate (Neostigmine) Confirm Administered Dose 5 mg .ROUTE .STK-MED ONE Stop: 06/17/19 17:26 Ondansetron HCl (Zofran) Confirm Administered Dose 4 mg .ROUTE .STK-MED ONE Stop: 06/17/19 17:26 Propofol (Diprivan 20 Ml) Confirm Administered Dose 200 mg .ROUTE .STK-MED ONE Stop: 06/17/19 17:28 Rocuronium [place] (Zemuron) Confirm Administered Dose 100 mg .ROUTE .STK-MED ONE Stop: 06/17/19 17:26 Succinylcholine Chloride (Succinylcholine Chloride) Confirm Administered Dose 200 mg .ROUTE .STK-MED ONE Stop: 06/17/19 17:26 - Exam Wound/Incisions: Dressing Dry and Intact, No Drainage General: Alert, Oriented, Cooperative, No Acute Distress HEENT: Pupils Equal, Pupils Reactive Neck: Supple Lungs: Clear to Auscultation, Normal Respiratory Effort Cardiovascular: Regular Rate, Regular Rhythm, No Murmurs GI/Abdominal Exam: Soft, Non-Tender, No Mass, Abnormal Bowel Sounds (hypoactive) Extremities: Normal Inspection, Normal Range of Motion. No: Dain's Sign Skin: Warm, Dry, Intact Neurological: No New Focal Deficit Psy/Mental Status: Alert, Normal Affect, Normal Mood - Problem List & Annotations (1) Obesity (BMI 30-39.9) SNOMED Code(s): 757990713, 538302083 Code(s): E66.9 - OBESITY, UNSPECIFIED Status: Acute Priority: Medium Current Visit: No (2) Diabetes type 1, controlled SNOMED Code(s): 36058947, 726828491 Code(s): E10.9 - TYPE 1 DIABETES MELLITUS WITHOUT COMPLICATIONS Status: Acute Priority: High Current Visit: Yes Qualifiers: Diabetes mellitus complication status: without complication Qualified Code( s): E10.9 - Type 1 diabetes mellitus without complications (3) Appendicitis SNOMED Code(s): 45958315 Code(s): K37 - UNSPECIFIED APPENDICITIS Status: Acute Priority: High Current Visit: Yes Qualifiers: Appendicitis type: acute appendicitis Acute appendicitis type: with localized peritonitis Appendicitis gangrene presence: without gangrene Appendicitis perforation presence: without perforation Appendicitis abscess presence: without abscess Qualified Code(s): K35.30 - Acute appendicitis with localized peritonitis, without perforation or gangrene - Problem List Review Problem List Initiated/Reviewed/Updated: Yes - My Orders Last 24 Hours: Active Orders 24 hr Category Date Time Status Admission Status [Patient Status] [ADT] Stat ADT 06/17/19 16:26 Active Patient Status [ADT] Routine ADT 06/17/19 19:41 Active Antiembolic Devices [RC] PER UNIT ROUTINE Care 06/17/19 17:02 Active Blood Glucose Check, Bedside [RC] QIDACANDBED Care 06/17/19 19:36 Active Insert Urinary Catheter [OM.PC] Timed Care 06/17/19 17:02 Ordered May Shower [RC] ASDIRECTED Care 06/18/19 10:48 Ordered Notify Provider Consults [RC] ASDIRECTED Care 06/17/19 19:39 Active Oxygen Therapy [RC] ASDIRECTED Care 06/17/19 17:02 Active Pulse Oximetry [RC] ASDIRECTED Care 06/17/19 19:34 Active RT Incentive Spirometry [RC] Q1HWA Care 06/17/19 17:02 Active Skin Preparation [RC] .PREOP Care 06/17/19 17:02 Active Up ad [place] [RC] PER UNIT ROUTINE Care 06/17/19 19:34 Active Consult to Physician [CONS] Routine Cons 06/17/19 19:38 Active ADA Diabetic [[place] [employer] Diet] [DIET Diet 06/18/19 Lunch Ordered ] Advance Diet Instructions [DIET] Diet 06/17/19 Dinner Active Acetaminophen [Tylenol] Med 06/17/19 19:34 Active 325 mg PO Q4H PRN Acetaminophen/HYDROcodone [[place] 325-5 MG] Med 06/17/19 19:34 Active 1 - 2 tab PO Q4H PRN Lactated Ringers [Ringers, Lactated] 1,000 ml Med 06/17/19 19:45 Active IV ASDIRECTED Morphine Med 06/17/19 19:34 Active 1 - 5 mg IVPUSH ASDIRECTED PRN Ondansetron [Zofran] Med 06/17/19 19:34 Active 4 mg IVPUSH Q6H PRN cefOXitin [Mefoxin in Dextrose,Iso-Osm 1 GM/50 ML] 1 gm Med 06/17/19 23:00 Active Premix Bag 1 bag IV Q6H cefOXitin [Mefoxin in Dextrose,Iso-Osm 1 GM/50 ML] 1 gm Med 06/18/19 10:45 Ordered Premix Bag 1 bag IV Q6H Antiembolic Hose [OM.PC] Routine Oth 06/17/19 17:02 Ordered Resuscitation Status Routine Resus Stat 06/17/19 17:02 Ordered Medication Orders Acetaminophen (Tylenol) 325 mg PO Q4H PRN PRN Reason: Fever Greater Than 101 Hydrocodone Bitart/Acetaminophen ([place] 325-5 Mg) 1 - 2 tab PO Q4H PRN PRN Reason: Pain (moderate 4-6) Last Admin: 06/18/19 10:39 Dose: 2 tab Admin: 06/18/19 06:35 Dose: 2 tab Admin: 06/18/19 00:19 Dose: 1 tab Admin: 06/17/19 22:15 Dose: 1 tab Lactated Ringer's (Ringers, Lactated) 1,000 mls @ 125 mls/hr IV ASDIRECTED [facility] Last Admin: 06/18/19 06:49 Dose: 125 mls/hr Infusion: 06/18/19 05:42 Dose: 125 mls/hr Admin: 06/17/19 21:42 Dose: 125 mls/hr Cefoxitin Sodium 1 gm/ Premix 50 mls @ 100 mls/hr IV Q6H [facility] Stop: 06/18/19 11:29 Last Admin: 06/18/19 10:09 Dose: 100 mls/hr Infusion: 06/18/19 04:49 Dose: 100 mls/hr Admin: 06/18/19 04:19 Dose: 100 mls/hr Infusion: 06/17/19 22:47 Dose: 100 mls/hr Admin: 06/17/19 22:17 Dose: 100 mls/hr Cefoxitin Sodium 1 gm/ Premix 50 mls @ 100 mls/hr IV Q6H [facility] Stop: 06/19/19 05:14 Morphine Sulfate (Morphine) 1 - 5 mg IVPUSH ASDIRECTED PRN PRN Reason: Pain (severe 7-10) Last Admin: 06/18/19 03:20 Dose: 2 mg Ondansetron HCl (Zofran) 4 mg IVPUSH Q6H PRN PRN Reason: Nausea/Vomiting - Assessment Assessment (Free Text/Narrative):: Patient is hemodynamically stable. Only incisional pain. Is voiding frequently in small amounts. WBC still elevated at 15K with left shift. - Plan Plan (Free Text/Narrative):: WBC is still elevated, despite afebrile and no tachycardia. Appreciate Dr. Turner' recommendations. Will keep her in hospital for another 24 hours and recheck labs tomorrow.
[2019-06-18] MEDS: Insulin Aspart 100 Units/ML 3 ML Pen SUBCUT SCH (17:16)
[2019-06-18] MEDS ORDERED: INSULIN DEGLUDEC 56 UNIT SUBCUT SCH (21:00)
[2019-06-19] MEDS: Acetaminophen/HYDROcodone 325-5 MG Tab PO PRN ×2 (02:00→07:38)
[2019-06-19] MEDS: cefOXitin 1 GM in Premix Bag 1 BAG IV SCH ×2 (04:15→11:27)
[2019-06-19 06:25] LABS: CHLORIDE,CL 107 mmol/L (98-107); SODIUM,NA 139 mmol/L (136-145)
[2019-06-19] MEDS: Insulin Aspart 100 Units/ML 3 ML Pen SUBCUT SCH (07:01)
[2019-06-19] MEDS: Lactated Ringers 1,000 ML IV SCH ×2 (07:57)
--- NOTE | 2019-06-19 08:30 | PCM.SURGPN ---
- General Info Date of Service: 06/19/19 POD#: 2 Post-Op Diagnosis: acute appendicitis Functional Status: Reports: Pain Controlled, Tolerating Diet, Ambulating, Urinating. Denies: New Symptoms - Review of Systems General: Denies: Weakness, Malaise HEENT: Reports: No Symptoms Pulmonary: Denies: Shortness of Breath, Cough Cardiovascular: Denies: Chest Pain Gastrointestinal: Reports: Abdominal Pain (incisional), Flatus. Denies: Constipation, Diarrhea, Nausea, Vomiting Genitourinary: Denies: Dysuria, Frequency, Urgency Musculoskeletal: Reports: Shoulder Pain (right) Skin: Denies: Jaundice, Mottled Neurological: Reports: No Symptoms Psychiatric: Reports: No Symptoms - Patient Data Vitals - Most Recent: Last Vital Signs Temp 96.9 F 06/19/19 08:00 Pulse 80 06/19/19 08:00 Resp 18 06/19/19 08:00 BP 116/55 L 06/19/19 08:00 Pulse Ox 96 06/19/19 08:00 Weight - Most Recent: 245 lb I&O - Last 24 Hours: Intake & Output 06/18/19 06/19/19 06/19/19 19:59 03:59 11:59 Intake Total 2740 898 1639 Output Total 1700 3200 Balance 1040 898 -1561 Lab Results Last 24 Hrs: Laboratory Results - last 24 hr 06/18/19 06/18/19 06/18/19 Range/Units 11:25 16:06 17:13 WBC (4.0-11.0) K/uL RBC (4.30-5.90) M/uL Hgb (12.0-16.0) g/dL Hct (36.0-46.0) % MCV (80.0-98.0) fL MCH (27.0-32.0) pg MCHC (31.0-37.0) g/dL RDW Std Deviation (28.0-62.0) fl RDW Coeff of Wei (11.0-15.0) % Plt Count (150-400) K/uL MPV (7.40-12.00) fL Neut % (Auto) (48.0-80.0) % Lymph % (Auto) (16.0-40.0) % [place] % (Auto) (0.0-15.0) % Eos % (Auto) (0.0-7.0) % Baso % (Auto) (0.0-1.5) % Neut # (Auto) (1.4-5.7) K/uL Lymph # (Auto) (0.6-2.4) K/uL [place] # (Auto) (0.0-0.8) K/uL Eos # (Auto) (0.0-0.7) K/uL Baso # (Auto) (0.0-0.1) K/uL Nucleated RBC % /100WBC Nucleated RBCs # K/uL Sodium (136-145) mmol/L Potassium (3.5-5.1) mmol/L Chloride (98-107) mmol/L Carbon Dioxide (21.0-32.0) mmol/L BUN (7.0-18.0) mg/dL Creatinine (0.6-1.0) mg/dL Est Cr Clr Drug Dosing mL/min Estimated GFR (MDRD) ml/min Glucose (74-106) mg/dL POC Glucose 113 H 193 H 208 H (60-110) mg/dL Calcium (8.5-10.1) mg/dL 06/18/19 06/19/19 06/19/19 Range/Units 21:36 06:05 06:05 WBC 13.54 H (4.0-11.0) K/uL RBC 3.98 L (4.30-5.90) M/uL Hgb 11.7 L (12.0-16.0) g/dL Hct 35.8 L (36.0-46.0) % MCV 89.9 (80.0-98.0) fL MCH 29.4 (27.0-32.0) pg MCHC 32.7 (31.0-37.0) g/dL RDW Std Deviation 44.4 (28.0-62.0) fl RDW Coeff of Wei 13 (11.0-15.0) % Plt Count 248 (150-400) K/uL MPV 9.80 (7.40-12.00) fL Neut % (Auto) 74.4 (48.0-80.0) % Lymph % (Auto) 18.3 (16.0-40.0) % [place] % (Auto) 6.2 (0.0-15.0) % Eos % (Auto) 1.0 (0.0-7.0) % Baso % (Auto) 0.1 (0.0-1.5) % Neut # (Auto) 10.1 H (1.4-5.7) K/uL Lymph # (Auto) 2.5 H (0.6-2.4) K/uL [place] # (Auto) 0.8 (0.0-0.8) K/uL Eos # (Auto) 0.1 (0.0-0.7) K/uL Baso # (Auto) 0.0 (0.0-0.1) K/uL Nucleated RBC % 0.0 /100WBC Nucleated RBCs # 0 K/uL Sodium 139 (136-145) mmol/L Potassium 3.4 L (3.5-5.1) mmol/L Chloride 107 (98-107) mmol/L Carbon Dioxide 25.3 (21.0-32.0) mmol/L BUN 10 (7.0-18.0) mg/dL Creatinine 0.8 (0.6-1.0) mg/dL Est Cr Clr Drug Dosing 102.39 mL/min Estimated GFR (MDRD) > 60.0 ml/min Glucose 131 H (74-106) mg/dL POC Glucose 150 H (60-110) mg/dL Calcium 8.3 L (8.5-10.1) mg/dL 06/19/19 Range/Units 06:59 WBC (4.0-11.0) K/uL RBC (4.30-5.90) M/uL Hgb (12.0-16.0) g/dL Hct (36.0-46.0) % MCV (80.0-98.0) fL MCH (27.0-32.0) pg MCHC (31.0-37.0) g/dL RDW Std Deviation (28.0-62.0) fl RDW Coeff of Wei (11.0-15.0) % Plt Count (150-400) K/uL MPV (7.40-12.00) fL Neut % (Auto) (48.0-80.0) % Lymph % (Auto) (16.0-40.0) % [place] % (Auto) (0.0-15.0) % Eos % (Auto) (0.0-7.0) % Baso % (Auto) (0.0-1.5) % Neut # (Auto) (1.4-5.7) K/uL Lymph # (Auto) (0.6-2.4) K/uL [place] # (Auto) (0.0-0.8) K/uL Eos # (Auto) (0.0-0.7) K/uL Baso # (Auto) (0.0-0.1) K/uL Nucleated RBC % /100WBC Nucleated RBCs # K/uL Sodium (136-145) mmol/L Potassium (3.5-5.1) mmol/L Chloride (98-107) mmol/L Carbon Dioxide (21.0-32.0) mmol/L BUN (7.0-18.0) mg/dL Creatinine (0.6-1.0) mg/dL Est Cr Clr Drug Dosing mL/min Estimated GFR (MDRD) ml/min Glucose (74-106) mg/dL POC Glucose 98 (60-110) mg/dL Calcium (8.5-10.1) mg/dL Med Orders - Current: Current Medications Acetaminophen (Tylenol) 325 mg PO Q4H PRN PRN Reason: Fever Greater Than 101 Hydrocodone Bitart/Acetaminophen ([place] 325-5 Mg) 1 - 2 tab PO Q4H PRN PRN Reason: Pain (moderate 4-6) Last Admin: 06/19/19 07:38 Dose: 2 tab Lactated Ringer's (Ringers, Lactated) 1,000 mls @ 125 mls/hr IV ASDIRECTED [facility] Last Admin: 06/19/19 07:57 Dose: 125 mls/hr Cefoxitin Sodium 1 gm/ Premix 50 mls @ 100 mls/hr IV Q6H [facility] Stop: 06/19/19 10:29 Last Admin: 06/19/19 04:15 Dose: 100 mls/hr Insulin Aspart (Novolog) 0 unit SUBCUT TIDAC [facility]; Protocol Last Admin: 06/19/19 07:01 Dose: Not Given Morphine Sulfate (Morphine) 1 - 5 mg IVPUSH ASDIRECTED PRN PRN Reason: Pain (severe 7-10) Last Admin: 06/18/19 14:25 Dose: 2 mg Ondansetron HCl (Zofran) 4 mg IVPUSH Q6H PRN PRN Reason: Nausea/Vomiting Insulin Degludec [ (Tresiba] 56 Units) 1 each SUBCUT BEDTIME [facility] Last Admin: 06/18/19 21:40 Dose: 1 each Discontinued Medications Bupivacaine HCl (Sensorcaine-Mpf 0.5%) Confirm Administered Dose 10 ml .ROUTE .STK-MED ONE Stop: 06/17/19 17:28 Cefazolin Sodium (Ancef) Confirm Administered Dose 1 gm .ROUTE .STK-MED ONE Stop: 06/17/19 17:27 Fentanyl (Sublimaze) Confirm Administered Dose 250 mcg .ROUTE .STK-MED ONE Stop: 06/17/19 17:28 Fentanyl (Sublimaze) Confirm Administered Dose 100 mcg .ROUTE .STK-MED ONE Stop: 06/17/19 18:41 Fentanyl (Sublimaze) Confirm Administered Dose 100 mcg .ROUTE .STK-MED ONE Stop: 06/17/19 18:42 Glycopyrrolate (Robinul) Confirm Administered Dose 0.8 mg .ROUTE .STK-MED ONE Stop: 06/17/19 17:26 Sodium Chloride (Normal Saline) 1,000 mls @ 999 mls/hr IV STAT ONE Stop: 06/17/19 14:23 Last Admin: 06/17/19 14:23 Dose: 999 mls/hr Cefoxitin Sodium 2 gm/ Premix 50 mls @ 100 mls/hr IV ONETIME ONE Stop: 06/17/19 17:23 Last Admin: 06/17/19 17:06 Dose: 100 mls/hr Lactated Ringer's (Ringers, Lactated) 1,000 mls @ 125 mls/hr IV ASDIRECTED [facility] Last Admin: 06/17/19 17:05 Dose: 125 mls/hr Dextrose/Lactated Ringer's (Dextrose 5%-Lactated Ringers) 1,000 mls @ 125 mls/ hr IV ASDIRECTED [facility] Last Admin: 06/17/19 17:48 Dose: 125 mls/hr Cefoxitin Sodium 1 gm/ Premix 50 mls @ 100 mls/hr IV Q6H [facility] Stop: 06/18/19 11:29 Last Admin: 06/18/19 10:09 Dose: 100 mls/hr Ketorolac Tromethamine (Toradol) Confirm Administered Dose 30 mg .ROUTE .STK- MED ONE Stop: 06/17/19 17:26 Lidocaine (Xylocaine-Mpf 2%) Confirm Administered Dose 5 ml .ROUTE .STK-MED ONE Stop: 06/17/19 17:26 Midazolam HCl (Versed 1 Mg/Ml) Confirm Administered Dose 2 mg .ROUTE .STK-MED ONE Stop: 06/17/19 17:28 Neostigmine Methylsulfate (Neostigmine) Confirm Administered Dose 5 mg .ROUTE .STK-MED ONE Stop: 06/17/19 17:26 Ondansetron HCl (Zofran) Confirm Administered Dose 4 mg .ROUTE .STK-MED ONE Stop: 06/17/19 17:26 Propofol (Diprivan 20 Ml) Confirm Administered Dose 200 mg .ROUTE .STK-MED ONE Stop: 06/17/19 17:28 Rocuronium Mabel (Zemuron) Confirm Administered Dose 100 mg .ROUTE .STK-MED ONE Stop: 06/17/19 17:26 Succinylcholine Chloride (Succinylcholine Chloride) Confirm Administered Dose 200 mg .ROUTE .STK-MED ONE Stop: 06/17/19 17:26 - Exam Wound/Incisions: Dressing Dry and Intact, Drainage (Minimal) Quality Assessment: DVT Prophylaxis. No: Supplemental Oxygen, Urine Catheter General: Alert, Oriented, Cooperative, No Acute Distress HEENT: Pupils Equal Neck: Supple Lungs: Clear to Auscultation, Normal Respiratory Effort Cardiovascular: Regular Rate, Regular Rhythm. No: Tachycardia GI/Abdominal Exam: Normal Bowel Sounds, Soft, Non-Tender, No Distention, No Mass Extremities: Normal Inspection Skin: Warm, Dry, Intact Neurological: No New Focal Deficit Psy/Mental Status: Alert, Normal Affect, Normal Mood - Problem List & Annotations (1) Obesity (BMI 30-39.9) SNOMED Code(s): 267519796, 278082085 Code(s): E66.9 - OBESITY, UNSPECIFIED Status: Acute Priority: Medium Current Visit: No (2) Diabetes type 1, controlled SNOMED Code(s): 68263811, 539624101 Code(s): E10.9 - TYPE 1 DIABETES MELLITUS WITHOUT COMPLICATIONS Status: Acute Priority: High Current Visit: Yes Qualifiers: Diabetes mellitus complication status: without complication Qualified Code( s): E10.9 - Type 1 diabetes mellitus without complications (3) Appendicitis SNOMED Code(s): 23547927 Code(s): K37 - UNSPECIFIED APPENDICITIS Status: Acute Priority: High Current Visit: Yes Qualifiers: Appendicitis type: acute appendicitis Acute appendicitis type: with localized peritonitis Appendicitis gangrene presence: without gangrene Appendicitis perforation presence: without perforation Appendicitis abscess presence: without abscess Qualified Code(s): K35.30 - Acute appendicitis with localized peritonitis, without perforation or gangrene - Problem List Review Problem List Initiated/Reviewed/Updated: Yes - My Orders Last 24 Hours: Active Orders 24 hr Category Date Time Status May Shower [RC] ASDIRECTED Care 06/18/19 10:48 Active Ready for Discharge [RC] PER UNIT ROUTINE Care 06/19/19 08:26 Ordered ADA Diabetic [[place] [employer] Diet] [DIET Diet 06/18/19 Lunch Active ] Insulin Aspart [NovoLOG] Med 06/18/19 17:00 Active See Protocol SUBCUT TIDAC Patient's Own Medication [Ptom] Med 06/18/19 21:00 Active 1 each SUBCUT BEDTIME cefOXitin [Mefoxin in Dextrose,Iso-Osm 1 GM/50 ML] 1 gm Med 06/18/19 16:00 Active Premix Bag 1 bag IV Q6H Medication Orders Acetaminophen (Tylenol) 325 mg PO Q4H PRN PRN Reason: Fever Greater Than 101 Hydrocodone Bitart/Acetaminophen ([place] 325-5 Mg) 1 - 2 tab PO Q4H PRN PRN Reason: Pain (moderate 4-6) Last Admin: 06/19/19 07:38 Dose: 2 tab Admin: 06/19/19 02:00 Dose: 2 tab Admin: 06/18/19 20:50 Dose: 2 tab Admin: 06/18/19 14:58 Dose: 2 tab Admin: 06/18/19 10:39 Dose: 2 tab Admin: 06/18/19 06:35 Dose: 2 tab Admin: 06/18/19 00:19 Dose: 1 tab Admin: 06/17/19 22:15 Dose: 1 tab Lactated Ringer's (Ringers, Lactated) 1,000 mls @ 125 mls/hr IV ASDIRECTED [facility] Last Admin: 06/19/19 07:57 Dose: 125 mls/hr Infusion: 06/19/19 07:57 Dose: 125 mls/hr Admin: 06/19/19 00:00 Dose: 125 mls/hr Infusion: 06/18/19 22:59 Dose: 125 mls/hr Admin: 06/18/19 14:59 Dose: 125 mls/hr Infusion: 06/18/19 14:49 Dose: 125 mls/hr Admin: 06/18/19 06:49 Dose: 125 mls/hr Infusion: 06/18/19 05:42 Dose: 125 mls/hr Admin: 06/17/19 21:42 Dose: 125 mls/hr Cefoxitin Sodium 1 gm/ Premix 50 mls @ 100 mls/hr IV Q6H [facility] Stop: 06/19/19 10:29 Last Admin: 06/19/19 04:15 Dose: 100 mls/hr Infusion: 06/18/19 22:00 Dose: 100 mls/hr Admin: 06/18/19 21:30 Dose: 100 mls/hr Infusion: 06/18/19 17:03 Dose: 100 mls/hr Admin: 06/18/19 16:33 Dose: 100 mls/hr Insulin Aspart (Novolog) 0 unit SUBCUT TIDAC [facility]; Protocol Last Admin: 06/19/19 07:01 Dose: Admin: 06/18/19 17:16 Dose: 2 unit Morphine Sulfate (Morphine) 1 - 5 mg IVPUSH ASDIRECTED PRN PRN Reason: Pain (severe 7-10) Last Admin: 06/18/19 14:25 Dose: 2 mg Admin: 06/18/19 03:20 Dose: 2 mg Ondansetron HCl (Zofran) 4 mg IVPUSH Q6H PRN PRN Reason: Nausea/Vomiting Insulin Degludec [ (Tresiba] 56 Units) 1 each SUBCUT BEDTIME [facility] Last Admin: 06/18/19 21:40 Dose: 1 each - Assessment Assessment (Free Text/Narrative):: Remains afebrile without tachycardia. White count down to 13,500 with no left shift. - Plan Plan (Free Text/Narrative):: Patient is stable for discharge. She was instructed not to lift more than 25 pounds for 6 weeks. Prescriptions were given for [place] 5/325 every 8 hours as needed for pain and ciprofloxacin 500 mg twice a day for 5 days. She is to return to the office in 10 days.
== END 2019-06-19 10:30 | disposition home or self-care (01) ==
LOC: MW.ED 13:16 → MW.SDS 17:21 → MW.MS 19:18
PROVIDERS: ADMIT Surgery; ATTEND Surgery
DX: K35.30 Acute appendicitis with localized peritonitis, without perforation or gangrene (principal); I10 Essential (primary) hypertension; E10.9 Type 1 diabetes mellitus without complications; E66.9 Obesity, unspecified; F17.200 Nicotine dependence, unspecified, uncomplicated; F31.70 Bipolar disorder, currently in remission, most recent episode unspecified; Z79.899 Other long term (current) drug therapy; Z68.39 Body mass index [BMI] 39.0-39.9, adult
CPT/HCPCS: 36415; 44970; 74176; 76705; 80048; 80053; 81003; 81025; 82962; 83690; 85025; 96361; 96374; 96375; 99285; A4217; A9270; J0330; J0690; J0694; J1815; J1885; J2001; J2250; J2270; J2405; J2704; J3010; J3490; J7040; J7042; J7120